=== PATIENT | female | born 1940 | race Caucasian/White ===

== ENCOUNTER 2018-03-27 18:14 | Emergency (ER) | END 2018-03-27 20:00 | disposition home or self-care (01) ==

== ENCOUNTER 2019-12-29 16:10 | Emergency (ER) | payer MEDICARE ==
[~2019-12-29] VITALS: Ht 162.6 cm; Wt 57.1 kg
[~2019-12-29 16:10] MED LIST: ACET325 PO; ASCO500 PO; ASPI325 PO; CEPH500 PO; CHOL10002 PO; ELIQUIS2.5 MG PO; ESCI10 PO; FLAX PO; HYDACE5 PO; Keflex500 MG PO; LATA.005SO BOTHEYES; Mucinex600 MG PO; ONDA8 PO; POTCHL20ER PO; PYRI100 PO; Protopic100 G1 TP; WOMEN S ONE DA PO; Zithromax250 MG PO; [UNRECOGNIZED DRUG - MIXTURE]
[2019-12-29 16:52] LABS: BASOPHILS ABSOLUTE AUTO 0.02 K/mm3 (0.00-0.23); BASOPHILS PERCENT AUTO 0 % (0-2); EOSINOPHILS PERCENT AUTO 0 % (0-6); Hematocrit 41.1 % (33.0-51.0); Hemoglobin 13.7 g/dL (11.5-16.0); IMMATURE GRAN ABSOLUTE AUTO 0.03 K/mm3 (0.00-0.10); IMMATURE GRAN PERCENT AUTO 0 % (0-1); LYMPHOCYTES ABSOLUTE AUTO 0.99 K/mm3 (0.84-5.20); LYMPHOCYTES PERCENT AUTO 8 % (21-46); MONOCYTES PERCENT AUTO 6 % (4-13); Mean Corpuscular HGB 31.8 pg (26.0-34.0); Mean Corpuscular HGB Conc 33.3 g/dL (31.5-36.5); Mean Corpuscular Volume 95 fL (80-100); NEUTROPHILS ABSOLUTE AUTO 10.33 K/mm3 (1.96-9.15); NEUTROPHILS PERCENT AUTO 86 % (41-73); Platelet Count 198 K/mm3 (150-400); RDW Coefficient Variation 12.5 % (11.7-14.2); RDW Standard Deviation 44.3 fL (35.1-46.3); Red Blood Cell Count 4.31 M/mm3 (3.80-5.20); White Blood Cell Count 12.07 K/mm3 (4.00-11.30)
[2019-12-29 17:13] LABS: Alanine Aminotransfer (ALT/SGP 32 U/L (12-78); Albumin, Blood 3.8 g/dL (3.4-5.0); Alk Phos 80 U/L (50-136); Anion Gap 8 mmol/L (6-16); Aspartate Aminotrans (AST/SGOT 34 U/L (12-37); Bilirubin, Total 0.6 mg/dL (0.1-1.0); Blood Urea Nitrogen 14 mg/dL (8-24); CO2, Blood 23 mmol/L (21-32); Calcium, Blood 9.1 mg/dL (8.5-10.1); Chloride, Blood 99 mmol/L (98-108); Creatinine, Blood 0.37 mg/dL (0.40-1.00); Globulin, Blood 3.9 g/dL (2.2-4.0); Glomerular Filtration Rate >60 (60-); Glucose, Blood 183 mg/dL (70-99); Potassium, Blood 3.7 mmol/L (3.5-5.5); Sodium, Blood 130 mmol/L (136-145); Total Protein, Blood 7.7 g/dL (6.4-8.2); Troponin I <0.015 ng/mL (0.000-0.040)
[2019-12-29 18:27] LABS: Source, Urine Clean Catch
[2019-12-29 18:34] LABS: Bilirubin, Urine Neg (Neg); Blood, Urine 1+ (Neg); Glucose Qualitative, Urine Neg (Neg); Ketones, Urine 4+ (Neg); Leukocyte Esterase, Urine Neg (Neg); Nitrite, Urine Neg (Neg); Protein, Urine 3+ (Neg); Urobilinogen, Urine NORM (Normal)
[2019-12-29 18:35] LABS: Appearance, Urine Clear (Clear); Color, Urine Yellow (P-Yellow)
[2019-12-29 18:40] LABS: Red Blood Cells, Urine 0-2 /hpf (0-2)
[2019-12-29 18:41] LABS: Amorphous Light (0-Heavy); Bacteria Mod /hpf; Hyaline Casts 0-2 /lpf (0-2); Mucus Mod (0-Heavy); Squamous Epithelial Cells Few /hpf (Few)
[2019-12-29 19:07] LABS: Influenza A Negative (NEGATIVE); Influenza B Negative (NEGATIVE)
[2019-12-29] MEDS ORDERED: ONDA4ODT MM (19:17)
[2019-12-29] MEDS ORDERED: Norco 5-325 Ta1 EACH PO (19:17)
[2019-12-29] MEDS ORDERED: ALBU90OI INH (19:17)
== END 2019-12-29 19:33 | disposition home or self-care (01) ==
LOC: ER 16:10
PROVIDERS: Emergency Medicine; Physician Assistant
DX: J06.9 Acute upper respiratory infection, unspecified (principal); J98.01 Acute bronchospasm
CPT/HCPCS: 36415; 71046; 80053; 81001; 84484; 85025; 87086; 87804; 93005; 93010; 94640; 96374; 96375; 99284-25; J1170; J2405

== ENCOUNTER → 2020-04-30 | Outpatient (CLI) | payer MEDICARE ==
[~2020-04-30] MED LIST changes: +ALBU90OI INH; +Norco 5-325 Ta1 EACH PO; +ONDA4ODT MM
== END | disposition home or self-care (01) ==
LOC: LAB SHORT 08:23 → PLD 08:23
DX: C44.529 Squamous cell carcinoma of skin of other part of trunk (principal)
CPT/HCPCS: 88305

== ENCOUNTER 2023-01-17 14:02 | Inpatient (IN) | payer OTHER, MEDICARE ==
[~2023-01-17] VITALS: Ht 167.6 cm; Wt 54.0 kg
[2023-01-17 14:59] LABS: BASOPHILS ABSOLUTE AUTO 0.03 K/mm3 (0.00-0.23); BASOPHILS PERCENT AUTO 0 % (0-2); EOSINOPHILS ABSOLUTE AUTO 0.09 K/mm3 (0.00-0.68); EOSINOPHILS PERCENT AUTO 1 % (0-6); Hematocrit 39.4 % (33.0-51.0); Hemoglobin 13.1 g/dL (11.5-16.0); IMMATURE GRAN ABSOLUTE AUTO 0.12 K/mm3 (0.00-0.10); IMMATURE GRAN PERCENT AUTO 1 % (0-1); LYMPHOCYTES ABSOLUTE AUTO 1.25 K/mm3 (0.84-5.20); LYMPHOCYTES PERCENT AUTO 12 % (21-46); MONOCYTES ABSOLUTE AUTO 0.59 K/mm3 (0.16-1.47); MONOCYTES PERCENT AUTO 6 % (4-13); Mean Corpuscular HGB 31.6 pg (26.0-34.0); Mean Corpuscular HGB Conc 33.2 g/dL (31.5-36.5); Mean Corpuscular Volume 95 fL (80-100); Mean Platelet Volume 10.4 fL (9.1-12.4); NEUTROPHILS ABSOLUTE AUTO 8.53 K/mm3 (1.96-9.15); NEUTROPHILS PERCENT AUTO 80 % (41-73); Platelet Count 204 K/mm3 (150-400); RDW Coefficient Variation 12.7 % (11.7-14.2); RDW Standard Deviation 44.3 fL (35.1-46.3); Red Blood Cell Count 4.15 M/mm3 (3.80-5.20); White Blood Cell Count 10.61 K/mm3 (4.00-11.30)
[2023-01-17 15:58] LABS: Bun/Creatinine Ratio 10.6 (12.0-20.0); Calcium, Blood 8.9 mg/dL (8.5-10.1); Creatinine, Blood 0.66 mg/dL (0.40-1.00); Potassium, Blood 4.7 mmol/L (3.5-5.5)
--- NOTE | 2023-01-18 00:35 | NUR ---
PT ARRIVED TO FLOOR @2044 ASPEN COLLAR IS IN PLACE, RESP RATE IS 14. SATS 94 ON RA. SHALLOW BREATHING NOTED. BASES DIM. TELE IS PLACED AND VERIFIED. BP IS STABLE. PATIENT ORIENTED TO ROOM AND CALL LIGHT. BED ALARM IS ON FOR SAFETY.
--- NOTE | 2023-01-18 03:15 | NUR ---
TELE UPDATE NOTIFIED BY [employer]SE OPERATOR OF HR DI[[ING DOWN INTO UPPER 30'S NOT SUSTAINING. DR VENCES NOTIFIED, NO NEW ORDERS. CURRENTLY A-FIB IN THE 50'S.
--- NOTE | 2023-01-18 04:19 | NUR ---
SUMMARY ADMIT THIS SHIFT FOR STERNAL FX AND TRAUMA. PATIENT HAS HX OF A-FIB AND MITRAL VALVE REPLACEMENT. TELE IN PLACE, CURRENTLY IN A-FIB IN THE 50'S. REPORTS PAIN IN HER ABDOMEN AND STERNAL AREA. ABD IS SOFT AND TENDER ON PALP. MEDICATED PER EMAR. REPOSITIONED FOR COMFORT. C-COLLAR IN PLACE PER ORDERS. PATIENT IS CURRENTLY RESTING COMFORTABLY VSS. ABLE TO VOID IN BSC W/ SBA. TOLRATES PO INTAKE. CALL LIGHT IN REACH, BED ALARM ON FOR SAFETY. WILL REPORT TO DAY RN.
--- NOTE | 2023-01-18 05:40 | NUR ---
UPDATE TELE CALLED AND REPORTS PATIENT DROPPING TO 34 FOR ABOUT 2 SECONDS AND GOES BACK UP INTO THE 40'S. PATIENT HAS BEEN SLOWLY TRENDING DOWN OVER THE COURSE OF THE SHIFT PER TECHNICAL INTERNSHIP. PATIENT WAKES EASILY FROM COMFORTABLE SLEEP. DENIES CHEST PAIN, SOB. REPORTS "STERNUM PAIN IS GONE". VSS. WILL CONTINUE TO MONITOR AND REPORT TO DAY RN.
--- NOTE | 2023-01-18 06:24 | NUR ---
UPDATE TELE NOTIFIED THIS RN OF HR DROPPING AND SUSTAINING TO 28BPM FOR ABOUT [address] VENCES NOTIFIED, NEW ORDER FOR TRANSFER TO PCU AND ATROPINE OBTAINED. PATIENT IS STILL ASYMPTOMATIC. VSS. DENIES CP, SOB. WILL CONTINUE TO MONITOR AND GIVE REPORT TO DAY RN.
--- NOTE | 2023-01-18 06:54 | NUR ---
RECEIVED REPORT FROM JUAN FRANCISCO HAYDEN ON SURGICAL FLOOR. PT TRANSFERED TO PCU 17 IN BED. A&OX3 FOR ME, BUT [place]. DENIES ANY FEELINGS OF LIGHTHEADEDNESS OR DIZZIENESS. SHE COMPLAINS OF "A LITTLE PAIN IN MY BACK BECAUSE I HAVEN'T BEEN MOVING ENOUGH". DENIES ANY OTHER PAIN AT THIS TIME. O2 SATS 92% ON RA, RESPIRATIONS EVEN AND UNLABORED. HR IS A-FIB IN THE 40-50'S AT THIS TIME. ORIENTED TO ROOM AND CALL LIGHT. DENIES NEEDS. CALL LIGHT IN REACH.
[2023-01-18 12:06] LABS: BASOPHILS ABSOLUTE AUTO 0.01 K/mm3 (0.00-0.23); BASOPHILS PERCENT AUTO 0 % (0-2); EOSINOPHILS ABSOLUTE AUTO 0.03 K/mm3 (0.00-0.68); EOSINOPHILS PERCENT AUTO 0 % (0-6); Hematocrit 37.9 % (33.0-51.0); Hemoglobin 12.6 g/dL (11.5-16.0); IMMATURE GRAN ABSOLUTE AUTO 0.05 K/mm3 (0.00-0.10); IMMATURE GRAN PERCENT AUTO 1 % (0-1); LYMPHOCYTES ABSOLUTE AUTO 1.45 K/mm3 (0.84-5.20); LYMPHOCYTES PERCENT AUTO 14 % (21-46); MONOCYTES ABSOLUTE AUTO 1.09 K/mm3 (0.16-1.47); MONOCYTES PERCENT AUTO 10 % (4-13); Mean Corpuscular HGB 31.4 pg (26.0-34.0); Mean Corpuscular HGB Conc 33.2 g/dL (31.5-36.5); Mean Corpuscular Volume 95 fL (80-100); Mean Platelet Volume 9.9 fL (9.1-12.4); NEUTROPHILS ABSOLUTE AUTO 7.93 K/mm3 (1.96-9.15); NEUTROPHILS PERCENT AUTO 75 % (41-73); Platelet Count 183 K/mm3 (150-400); RDW Coefficient Variation 12.8 % (11.7-14.2); RDW Standard Deviation 44.3 fL (35.1-46.3); Red Blood Cell Count 4.01 M/mm3 (3.80-5.20); White Blood Cell Count 10.56 K/mm3 (4.00-11.30)
[2023-01-18 12:48] LABS: Albumin, Blood 3.3 g/dL (3.4-5.0); Anion Gap 3 mmol/L (6-16); Blood Urea Nitrogen 14 mg/dL (8-24); CO2, Blood 29 mmol/L (21-32); Chloride, Blood 103 mmol/L (98-108); Creatinine, Blood 0.58 mg/dL (0.40-1.00); Glomerular Filtration Rate 89 (60-); Glucose, Blood 134 mg/dL (70-99); Magnesium, Blood 2.4 mg/dL (1.6-2.4); Potassium, Blood 3.9 mmol/L (3.5-5.5); Sodium, Blood 135 mmol/L (136-145)
--- NOTE | 2023-01-18 17:52 | NUR ---
SHIFT SUMMARY ASSUMED CARE OF PT AT 0700 THIS AM. HR NOTED TO BE INCREASINGLY BRADYCARDIC T/O THE MORNING, DROPPING LOW 25. PT DENIES CHEST PAIN, PRESSURE, DIZZINESS, PRE-SYNCOPE, BUT DOES ENDORSE FEELING "VERY TIRED." DR BILLINGSLEY NOTIFIED AND HE CONSULTED DR GAN OF CARDIOLOGY. ECHO, SECOND EKG, AND LABS COMPLETED. DR GAN SAW PT AND PLANNED FOR PACEMAKER PLACEMENT. PT TO [employer] ATTENDANT THIS AFTERNOON FOR PACEMAKER PLACEMENT, PT TOLERATED WELL PER REPORT FROM [employer] ATTENDANT STAFF. SINGLE CHAMBER PACEMAKER PLACE, HR 60 100% PACED ON TELEMETRY ON RETURN TO ROOM. POST OP VITALS STABLE. L CHEST PACER SITE WNL. PT RESTING QUIETLY IN BED POST PROCEDURE, DENIES NEED FOR PAIN MEDICATIONS. C COLLAR HAS REMAINED IN PLACE ALL DAY PER MD ORDERS. PT IS ABLE TO USE CALL LIGHT FOR NEEDS, CALL LIGHT IN REACH, WILL CONTINUE TO MONITOR AND GIVE REPORT TO NOC SHIFT RN.
--- NOTE | 2023-01-18 21:31 | NUR ---
ASSUMPTION OF CARE THIS RN ASSUMED CARE OF PATIENT AT 1900. REPORT TAKEN FROM TAMI HAYDEN. PATIENT WITH STABLE VITALS. VENTRICULAR PACED WITH OCCASIONAL PVC'S ON MONITOR WITH HR 60'S. BP STABLE. AFEBRILE. PULSES STRONG. C-COLLAR IN PLACE. PACER SITE IN LEFT CHEST WALL WITH SMALL AMOUNT OF DRIED BLOOD ON GUAZE DRESSING, NO SUBCUTANEOUS EMPHYSEMA NOTED, NO DISCOLORATION NOTED, PATIENT DENIES PAIN WITH PALPATION. PATIENT VERBALIZED UNDERSTANDING RESTRICTIONS OF MOVEMENTS WHEN THIS RN WENT OVER EDUCATION. PATIENT APPEARS MILDLY CONFUSED ABOUT EVENTS LEADING UP TO HOSPITALIZATION AND THE CURRENT DATE/TIME. PATIENT WITH HX OF DEMENTIA. PATIENT LETHARGIC AT THIS TIME, WILL CONTINUE TO ASSESS NEURO THROUGHOUT THIS SHIFT. BED IN LOWEST POSITION AND CALL LIGHT WITHIN REACH.
--- NOTE | 2023-01-19 05:15 | NUR ---
SHIFT SUMMARY NO ACUTE CHANGES OVERNIGHT. PACERMAKER SITE UNCHANGED. NO HEMATOMA OR DISCOLORATION. UNCHANGED AMOUNT OF MILD SANGUINOUS DRAINAGE ON DRESSING. SLIGHT TENDERNESS WITH PALPATION. NO SUBCUTANEOUS EMPHYSEMA FELT. LEFT ARM SLING IN PLACE. THIS RN CONTINUING TO REINFORCE EDUCATION ABOUT RESTRICTIONS REGARDING PACEMAKER AND ARM MOVEMENT. PATIENT IS ALERT AND ORIENTED FULLY. HARD OF HEARING. EDUCATED ABOUT LOG ROLLING WITH TRANSFERRING TO [facility] [place]. C-COLLAR IN PLACE. CONTINUES TO HAVE STERNAL PAIN WITH MOVEMENT, COUGHING, AND DEEP BREATHING. EDUCATED ABOUT THE IMPORTANCE OF DEEP BREATHING AND COUGHING TO PREVENT PNEUMONIA; EDUCATED ABOUT SPLINTING THE CHEST WHEN COUGHING. VENTRICULAR PACING WITH PVC'S NOTED, HR 60'S. BP STABLE. AFEBRILE. SPO2 >92% ON 1-2L OF O2. 88-90% ON RA. BED IN LOWEST POSITION AND CALL LIGHT WITHIN REACH. THIS RN WILL CONTINUE TO MONITOR UNTIL SHIFT CHANGE AT 0700.
[2023-01-19] MEDS ORDERED: ACET325 PO (10:00)
[2023-01-19] MEDS ORDERED: LOSA25 PO (10:01)
[2023-01-19] MEDS ORDERED: Robaxin750 MG PO (10:01)
[2023-01-19] MEDS ORDERED: CEPH500 PO (10:02)
== END 2023-01-19 14:08 | disposition home health service (06) | DRG 982 ==
LOC: ER 14:02 → SURS 14:03 → PCU 14:03 → SURS 20:14 → PCU 01-18 06:48
PROVIDERS: Emergency Medicine; Family Medicine; ADMIT Surgery
PROC: 0JH604Z Insertion of Pacemaker, Single Chamber into Chest Subcutaneous Tissue and Fascia, Open Approach (ICD-10-PCS; principal; 2023-01-18)
PROC: 02HK3JZ Insertion of Pacemaker Lead into Right Ventricle, Percutaneous Approach (ICD-10-PCS; 2023-01-18)
DX: S22.21XA Fracture of manubrium, initial encounter for closed fracture (principal); I48.21 Permanent atrial fibrillation; I48.92 Unspecified atrial flutter; S12.200A Unspecified displaced fracture of third cervical vertebra, initial encounter for closed fracture; S12.300A Unspecified displaced fracture of fourth cervical vertebra, initial encounter for closed fracture; I49.5 Sick sinus syndrome; R55 Syncope and collapse; F03.A0 Unspecified dementia, mild, without behavioral disturbance, psychotic disturbance, mood disturbance, and anxiety; M19.90 Unspecified osteoarthritis, unspecified site; M81.0 Age-related osteoporosis without current pathological fracture; E78.5 Hyperlipidemia, unspecified; F32.A Depression, unspecified; F41.9 Anxiety disorder, unspecified; I10 Essential (primary) hypertension; R77.8 Other specified abnormalities of plasma proteins; I05.9 Rheumatic mitral valve disease, unspecified; H40.9 Unspecified glaucoma; R94.31 Abnormal electrocardiogram [ECG] [EKG]; I44.7 Left bundle-branch block, unspecified; I27.20 Pulmonary hypertension, unspecified; I67.1 Cerebral aneurysm, nonruptured; R41.3 Other amnesia; V49.40XA Driver injured in collision with unspecified motor vehicles in traffic accident, initial encounter; Z98.890 Other specified postprocedural states; Z79.01 Long term (current) use of anticoagulants; Z88.5 Allergy status to narcotic agent; Z88.8 Allergy status to other drugs, medicaments and biological substances; Z79.899 Other long term (current) drug therapy; Z85.820 Personal history of malignant melanoma of skin; Z87.820 Personal history of traumatic brain injury
CPT/HCPCS: 33207; 36415; 70450; 71045; 71046; 71260; 72125; 76937; 80048; 80069; 83735; 84443; 84484; 85025; 93005; 93010; 93306; 97116; 97162; 97165; 97530; 97535; 99152; 99153; 99285-25; A9270; C1786; C1894; C1898; G0378; J0690; J1644; J2250; J3010; J7030; J7040; Q9967